=== PATIENT | male | born 1955 | race Caucasian/White ===

== ENCOUNTER 2023-09-18 15:29 | Emergency (ER) | payer SELFPAY ==
[2023-09-18] VITALS (12 sets, daily range): BP systolic 168–268; BP diastolic 88–170; PULSE 83–130; RESP 13–20; TEMP 36.9–37; O2SAT 96–98; BMI 20.3
--- NOTE | 2023-09-18 16:09 | PC.NURSE ---
BP is still high at 210/110, charge is aware and possibly going into the main ED for monitoring.
--- NOTE | 2023-09-18 16:45 | ECG_ITS ---
Test Reason : SEVERE HYPERTENSION Blood Pressure : / mmHG Vent. Rate : 098 BPM Atrial Rate : 098 BPM P-R Int : 170 ms QRS Dur : 084 ms QT Int : 360 ms P-R-T Axes : 047 -06 049 degrees QTc Int : 459 ms Normal sinus rhythm Moderate voltage criteria for LVH, may be normal variant ( R in aVL , Sokolow-Krishna ) Anterior infarct , age undetermined Abnormal ECG No previous ECGs available Referred By: Jadon Costello Electronically Signed By:CHERI JON
--- NOTE | 2023-09-18 16:46 | ED.GENADULT ---
HPI - General Adult General Chief complaint: Psychiatric Symptoms Stated complaint: Psych, sect 12 Time Seen by Provider: 09/18/23 16:00 Source: patient, RN notes reviewed and old records reviewed Mode of arrival: EMS Limitations: no limitations History of Present Illness ED Provider: Trang HOLLAND narrative: 68-year-old male with past medical history significant for schizoaffective disorder presents for evaluation of ?I do not know what happened, the real estate site analyst just showed up and brought me here. ? Apparently the patient's house and [place] was conducted today. Per EMS notes and social research assistant, the patient has not had electrolyte new or running water for about 15 years The patient himself offers no complaints. He states that his mental health is ?pretty good, I have never had any mental health issues. ? He is not suicidal but does admit to feeling sad related to the passing of his dog He denies any headache or chest pain He initially complained of mild abdominal discomfort but then later recanted and said that he has no abdominal pain The patient states that he was just home and the real estate site analyst were just knocking on his door and bars their way in and brought him to the ER. It appeared as though his social research assistant called the police for a wellness check and the patient was deemed unfit to care for himself at home Related Data Allergies Allergy/AdvReac Type Severity Reaction Status Date / Time HAYFEVER Allergy Unknown SNEEZING Uncoded 09/18/23 15:43 Review of Systems Constitutional: Constitutional: Denies body ache(s), Denies chills, Denies fever(s) and Denies headache(s) Eyes: Eyes: Denies blurry vision ENT: Denies vertigo, Denies dizziness and Denies headache(s) Cardiovascular: Cardiovascular: Denies chest pain and Denies dyspnea Respiratory: Respiratory: Denies cough and Denies dyspnea Gastrointestinal: Gastrointestinal: Denies abdominal pain, Denies nausea and Denies vomiting Musculoskeletal: Musculoskeletal: Denies back pain Integumentary/Breasts: Skin/Breast: Denies rash Neurologic: Denies vertigo, Denies dizziness and Denies headache(s) Psychiatric: Psychiatric: Denies anxiety PMFSH Social History Social History Alcohol intake: never Smoked in Last 30 Days: No Use of substances other than those prescribed or required for medical reasons: No Advance Directives: No Advance Directives Information Provided: Yes Do you have a plan to hurt others: No Plan Physical Exam ED Vital Signs: Vital Signs - 24 hr 09/18/23 15:41 09/18/23 16:04 09/18/23 18:09 Temperature 98.6 F Pulse Rate 120 H 110 H 115 H Respiratory Rate 20 18 Blood Pressure 268/170 H 210/110 H 260/153 H Pulse Oximetry 96 Oxygen Delivery Method Room Air 09/18/23 18:45 09/18/23 18:45 09/18/23 19:09 Temperature Pulse Rate 97 97 83 Respiratory Rate 15 Blood Pressure 259/166 H 259/166 H 247/145 H Pulse Oximetry Oxygen Delivery Method 09/18/23 19:38 09/18/23 20:00 09/18/23 20:13 Temperature Pulse Rate 85 91 92 Respiratory Rate Blood Pressure 242/148 H 199/128 H 179/112 H Pulse Oximetry Oxygen Delivery Method 09/18/23 21:08 Temperature Pulse Rate 93 Respiratory Rate Blood Pressure 197/106 H Pulse Oximetry Oxygen Delivery Method BMI result Body Mass Index 20.3 Const General: healthy appearing, comfortable, no acute distress, alert and awake Nutritional Appearance: well nourished Orientation/consciousness: patient oriented x3 HENMT Head: Yes normocephalic and Yes atraumatic Eyes Eyelids: Yes eyelids normal Conjunctivae: conjunctivae normal Sclerae: sclerae normal Corneas: corneas normal Pupils: Equal, round and reactive pupils present EOM: EOMs intact bilaterally Neck Neck: Yes full ROM Resp Effort & Inspection: normal respiratory effort, able to speak in complete sentences, no audible wheezes and not labored Auscultation: clear to auscultation bilaterally Cardio Rate: regular rate Rhythm: regular rhythm GI Inspection: No distended Palpation (GI): Soft to palpation, not firm, nontender, no guarding and not rigid Skin General skin exam: no rashes or lesions noted and elasticity normal Neuro General: patient oriented x3 Cranial nerves: Yes CN's II-XII intact bilaterally, Yes Equal, round and reactive pupils present and Yes Bilaterally intact EOM present Cognition (Neuro): normal cognition Extrem Other: Moving all extremities well without any obvious deformities Psych Appearance: disheveled Mental Status: mental status grossly normal Speech and movement: Normal speech and movement present Affect: normal affect Attitude: cooperative Thought process: Normal thought process present Thought content: suicidality and no homicidality Insight: Limited insight present (Psych) Judgement: Limited judgement present (Psych) Course Reevaluation(s) Reevaluation #1: Patient's creatinine noted to be elevated to 2.15, he has no history of renal disease. This is most likely related to his significant hypertension. However, the patient does appear somewhat dry we will give 1 L of normal saline Time: 18:02 Reevaluation #2: Patient's blood pressure is not improved despite labetalol x2 and p.o. metoprolol, we will start nicardipine drip with a goal systolic blood pressure of 180 Time: 19:32 Reevaluation #3: Patient was started on nicardipine as he had no improvement with labetalol. The patient had good effect with nicardipine at 7.5 meeting a target systolic blood pressure of 180. However when attempting to titrate back down his blood pressure immediately increase his back to systolic over 200. At this time, unfortunately hospital will not allow a nicardipine drip on the floor, we did not have any ICU beds available we will discuss possible transfer. Time: 21:08 Additional Reevaluation(s): Discussed with [facility] transfer line, or function they do not have any beds available for the patient. Discusses with Dr Cormier, hospitalist at [place], [place]. The patient will be accepted to the PCU step-down unit to E 3, room 15. It was confirmed that this PCU unit is able to accommodate nicardipine drip Medications Administered Generic Name Dose Route Start Last Admin Trade Name Freq PRN Reason Stop Dose Admin Nicardipine HCl 25 mg/ Sodium 260 mls @ 0 mls/hr 09/18/23 19:15 09/18/23 21:08 Chloride IVCONT 7.5 mg/hr .Q0M CARLOS 78 mls/hr Titration Protocol Per Protocol Discontinued Medications Generic Name Dose Route Start Last Admin Trade Name Freq PRN Reason Stop Dose Admin Al Hydroxide/Mg Hydroxide 30 ml 09/18/23 20:05 09/18/23 20:09 Magnesium Hydrox/Alum Hydrox 30 Ml Oral.Susp PO 09/18/23 20:06 30 ml ONCE ONE Administration Sodium Chloride 1,000 mls @ 999 mls/hr 09/18/23 18:15 09/18/23 19:25 Ns IV 09/18/23 19:15 Infused .Q1H1M CARLOS Infusion Labetalol HCl 5 mg 09/18/23 17:18 09/18/23 18:09 Labetalol Hcl 100 Mg/20 Ml Vial IVPUSH 09/18/23 17:19 5 mg ONCE ONE Administration Labetalol HCl 20 mg 09/18/23 18:36 09/18/23 18:45 Labetalol Hcl 100 Mg/20 Ml Vial IVPUSH 09/18/23 18:37 20 mg ONCE ONE Administration Lidocaine HCl 15 ml 09/18/23 20:05 09/18/23 20:11 Lidocaine Hcl Viscous 2 % 15 Ml Solution MUCOUS MEM 09/18/23 20:06 Not Given ONCE ONE Metoprolol Succinate 50 mg 09/18/23 18:36 09/18/23 18:45 Metoprolol Succinate Er 50 Mg Tab.Er.24h PO 09/18/23 18:37 50 mg ONCE ONE Administration Protocol Medical Decision Making Medical Decision Making [facility] Narrative: 68-year-old male who denies any past medical history but admits he has not seen a doctor in many years presents for evaluation after a wellness check deemed him unfit to care for himself at home. He denies any suicidal ideation. The patient's initial blood pressure was 268/170 which improved to 210/110 after a short while without intervention. The patient will require medical workup including labs, EKG. If medically cleared, he will likely require a care team evaluation, however the patient may require admission due to hypertensive emergency. Differential Diagnosis Differential Diagnoses: The differential diagnosis associated with the presentation includes Schizoaffective disorder Bipolar disorder Hypertensive emergency Hypertensive urgency Depression Admission/Observation Consideration of admission/observation: Escalation of care including admission/observation considered Lab Data [facility] Lab Attestation statement: I reviewed the patient's lab results. No leukocytosis or anemia. Normal platelet count. Electrolytes within normal limits. Elevated BUN and creatinine likely related to hypertensive emergency 09/18/23 17:18 09/18/23 17:18 Labs: Lab Results 09/18/23 09/18/23 Range/Units 16:47 17:18 WBC 10.6 (4.8-10.8) X10*3/uL RBC 4.87 (4.60-5.80) X10*6/uL Hgb 15.3 (14.0-18.0) g/dl Hct 43.7 (42.0-52.0) % MCV 89.7 (80.0-98.0) fL MCH 31.4 (27.0-33.0) pg MCHC 35.0 (31.0-36.0) g/dl RDW 12.8 (11.0-16.0) % Plt Count 247 (160-400) X10*3/uL MPV 10.2 (9.4-12.4) fL Immature Gran % (Auto) 0.3 (0.0-0.4) % Neut % (Auto) 87.4 H (45-73) % Lymph % (Auto) 6.4 L (20-40) % [place] % (Auto) 4.9 (2-11) % Eos % (Auto) 0.3 (0-4) % Baso % (Auto) 0.7 (0-2) % Lymph # (Auto) 0.7 L (1.2-4.9) X10*3/uL [place] # (Auto) 0.5 (0.1-1.2) X10*3/uL Eos # (Auto) 0.0 (0.0-0.4) X10*3/uL Baso # (Auto) 0.1 (0.0-0.2) X10*3/uL Abs Immat Gran (auto) 0.03 (0.00-0.03) X10*3/uL Absolute Neuts (auto) 9.3 H (2.0-8.3) x10*3/uL Absolute Nucleated RBC 0.000 (0.0-0.012) X10*3/uL Nucleated RBC % (auto) 0.0 (0.0-0.2) /100WBC Sodium 140 (135-145) mmol/L Potassium 3.8 (3.3-5.1) mmol/L Chloride 106 (96-108) mmol/L Carbon Dioxide 24 (22-29) mmol/L Anion Gap 14 (12-20) BUN 21 H (9-16) mg/dL Creatinine 2.15 H (0.5-1.4) mg/dL Estim Creat Clear Calc 31.2 Estimated GFR 31 Random Glucose 111 (60-115) mg/dL Calcium 9.9 (8.4-10.2) mg/dL Total Bilirubin 0.5 (0.0-1.0) mg/dL AST 15 (5-37) U/L ALT 10 (0-40) U/L Alkaline Phosphatase 105 (39-117) U/L Troponin I High Sens 33.0 (<3.5-35.0) ng/L Total Protein 8.1 H (6.5-8.0) g/dL Albumin 4.6 (3.5-5.0) g/dL Urine Color Yellow Urine Appearance Clear Urine pH 5.5 (5.0-9.0) Ur Specific [place] 1.020 (1.005-1.025) Urine Protein 300 (3+) H (Neg-Trace) mg/dL Urine Glucose (UA) Negative (Negative) mg/dL Urine Ketones Trace (Negative) mg/dL Urine Blood Negative (Negative) Urine Nitrite Negative (Negative) Ur Leukocyte Esterase Negative (Negative) Urine RBC 0-2 (0-2) /HPF Urine WBC 0-5 (0-5) /HPF Ur Squamous Epith Cells 0-2 (0-2) /HPF Urine Bacteria None Seen (None Seen) Hyaline Casts 3-5 (0-2) /LPF Salicylates < 5.0 L (15-30) mg/dL Urine Opiates Screen Not Detected (Not Detect) Ur Buprenorphine Scrn Not Detected (Not Detect) ng/mL Ur Oxycodone Screen Not Detected (Not Detect) ng/mL Urine Methadone Screen Not Detected (Not Detect) ng/mL Urine Fentanyl Screen Not Detected (Not Detect) Acetaminophen < 3 (<30) mcg/mL Ur Barbiturates Screen Not Detected (Not Detect) Ur Phencyclidine Scrn Not Detected (Not Detect) Ur Amphetamines Screen Not Detected (Not Detect) U Benzodiazepines Scrn Not Detected (Not Detect) Urine Cocaine Screen Not Detected (Not Detect) U Marijuana (THC) Screen Not Detected (Not Detect) Ethyl Alcohol < 10 mg/dL Independent Interpretation I performed an independent interpretation of an: EKG Interpretation: Normal sinus rhythm with a rate of [address] segment elevation MO Critical Care Time Critical Care Time Critical Care Time: Yes Total Critical Care Time: 45 Attestation: 68-year-old male presents in hypertensive crisis. He has evidence of end-organ damage with acute kidney injury due to hypertension. He was initially given labetalol x2 as well as oral metoprolol without significant improvement in his blood pressure. He was transferred to a nicardipine drip with close monitoring. Discharge Plan Discharge Clinical Impression: Hypertension, MINAL (acute kidney injury) Patient Disposition: [facility] Transfer Details: [facility] PCU Interventions: [place]-Suicide Risk Severity Scale Last Done: 09/18/23 17:11 Print Language: Bangladeshi
[2023-09-18 16:54] LABS: Appearance Urine Clear; Color Urine Yellow; Glucose Urine UA Negative (Negative); Leukocyte Esterase Urine Negative (Negative); Nitrite Urine Negative (Negative); PH 5.5 (5.0-9.0); UMIC TRIGGER UA YES; Urine Blood Negative (Negative); Urine Ketones Trace mg/dL (Negative); Urine Protein 300 (3+) mg/dL (Neg-Trace)
[2023-09-18 17:03] LABS: Amphetamine Screen Urine Not Detected (Not Detect); Barbiturates, Urine Not Detected (Not Detect); Benzodiazepines Screen Urine Not Detected (Not Detect); Buprenorphine Scr Not Detected (Not Detect); Cannabinoid Screen Urine Not Detected (Not Detect); Cocaine Screen Urine Not Detected (Not Detect); Fentanyl, urine Not Detected (Not Detect); Methadone Screen, Urine Not Detected (Not Detect); Opiate Screen Urine Not Detected (Not Detect); Oxycodone Screen Urine Not Detected (Not Detect); Phencyclidine Screen Urine Not Detected (Not Detect)
[2023-09-18 17:11] LABS: Bacteria Urine None Seen (None Seen); RBC Urine 0-2 /HPF (0-2); Squamous Epithelial Cell Urine 0-2 /HPF (0-2); WBC Urine 0-5 /HPF (0-5)
[2023-09-18 17:29] LABS: MANUAL DIFF FLAG NO
[2023-09-18 17:35] LABS: Basophils Absolute Auto 0.1 X10*3/uL (0.0-0.2); Basophils Percent Auto 0.7 % (0-2); Eosinophils Percent Auto 0.3 % (0-4); Hematocrit 43.7 % (42.0-52.0); Hemoglobin 15.3 g/dl (14.0-18.0); Imm Gran Abs Auto 0.03 X10*3/uL (0.00-0.03); Imm Gran Pct Auto 0.3 % (0.0-0.4); Lymphocytes Absolute Auto 0.7 X10*3/uL (1.2-4.9); Lymphocytes Percent Auto 6.4 % (20-40); Mean Corpuscular Hemoglobin 31.4 pg (27.0-33.0); Mean Corpuscular Volume 89.7 fL (80.0-98.0); Mean Platelet Volume 10.2 fL (9.4-12.4); Monocytes Absolute Auto 0.5 X10*3/uL (0.1-1.2); Monocytes Percent Auto 4.9 % (2-11); Neutrophils Absolute Auto 9.3 x10*3/uL (2.0-8.3); Neutrophils Percent Auto 87.4 % (45-73); Platelet Count 247 X10*3/uL (160-400); Red Blood Count 4.87 X10*6/uL (4.60-5.80); Red Cell Distribution Width 12.8 % (11.0-16.0); White Blood Count 10.6 X10*3/uL (4.8-10.8)
[2023-09-18 17:53] LABS: Acetaminophen LAB < 3 mcg/mL (<30); Alanine Aminotransferase 10 U/L (0-40); Albumin Level 4.6 g/dL (3.5-5.0); Alkaline Phosphatase 105 U/L (39-117); Anion Gap 14 (12-20); Aspartate Amino Transferase 15 U/L (5-37); Bilirubin Total 0.5 mg/dL (0.0-1.0); Blood Urea Nitrogen 21 mg/dL (9-16); Calcium 9.9 mg/dL (8.4-10.2); Carbon Dioxide 24 mmol/L (22-29); Chloride 106 mmol/L (96-108); Creatinine Clr Calc Pharmacy 31.2; Estimated Glomerular Filt Rate 31; Ethanol < 10 mg/dL; Glucose Random 111 mg/dL (60-115); Potassium 3.8 mmol/L (3.3-5.1); Salicylate < 5.0 mg/dL (15-30); Sodium 140 mmol/L (135-145); Total Protein 8.1 g/dL (6.5-8.0)
[2023-09-18] MEDS: Labetalol HCL 100 MG/20 ML VIAL IVPUSH (18:09)
[2023-09-18] MEDS: 0.9 % Sodium Chloride 1,000 ML 999 ML IV (18:10)
[2023-09-18] MEDS: Labetalol HCL 100 MG/20 ML VIAL 20 MG IVPUSH (18:45)
[2023-09-18] MEDS: Metoprolol Succinate ER 50 MG TAB.ER.24H PO (18:45)
--- NOTE | 2023-09-18 18:51 | PC.NURSE ---
From POD d/t hypertension. 1: 1 at bedside, denies SI / HI. Provider aware of elevated BP, medicated per mar
--- NOTE | 2023-09-18 19:11 | PC.NURSE ---
This RN assumed pt care @ 1900. Pt ca&ox4, no signs of distress. Pt sitting in bed, watching tv. Sitter remains. Pts b/p 247/145 provider Yair notified and aware. Plan of care ongoing.
[2023-09-18] MEDS: niCARdipine HCL 25 MG in 0.9 % Sodium Chloride 250 ML 52 MG IVCONT (19:38)
--- NOTE | 2023-09-18 20:05 | PC.NURSE ---
Pt requesting med for acid reflux Provider Yair notified and aware. Per provider if systolic hits 180 pt should go back to 5mg until about 2230. Plan of care ongoing.
[2023-09-18] MEDS: Magnesium Hydrox/Alum Hydrox 30 ML ORAL.SUSP PO (20:09)
--- NOTE | 2023-09-18 20:12 | PC.NURSE ---
Pt refused the lidocaine. Plan of care ongoing.
--- NOTE | 2023-09-18 21:08 | PC.NURSE ---
This RN spoke with provider Yair, regarding pts b/p going back up to 197/106. Per provider titrate pt back to 7.5mg and leave there. Plan of care ongoing.
--- NOTE | 2023-09-18 23:05 | PC.NURSE ---
Nurse to nurse report given to Valerie @ [phone]
== END 2023-09-18 23:07 | disposition short-term general hospital (02) ==
PROVIDERS: Physician Assistant; Emergency Provider Emergency Medicine
DX: I16.9 Hypertensive crisis, unspecified (principal); I12.9 Hypertensive chronic kidney disease with stage 1 through stage 4 chronic kidney disease, or unspecified chronic kidney disease; N18.9 Chronic kidney disease, unspecified; N17.9 Acute kidney failure, unspecified; F25.9 Schizoaffective disorder, unspecified
CPT/HCPCS: 36415; 80053; 80143; 80179; 80307; 81001; 84484; 85025; 93005; 96361; 96365; 96366; 96375; 96376; 99285; J1920; J2404

== ENCOUNTER → 2023-09-18 16:45 | Outpatient (BNV) | payer SELFPAY | PROVIDERS: Emergency Provider Emergency Medicine; Visit Provider Internal Medicine | DX: R94.31 Abnormal electrocardiogram [ECG] [EKG] (principal) | CPT/HCPCS: 93010 ==